=== PATIENT | female | born 1975 | race Caucasian/White ===

== ENCOUNTER 2021-04-29 09:52 | Emergency (ER) | payer MEDICAID ==
[~2021-04-29] VITALS: Ht 162.6 cm; Wt 72.7 kg
[~2021-04-29 09:52] MED LIST: OMEP40CA21 PO; ONDA4TAB9 PO; TRAM50TA2 PO; VENL-190 PO
[2021-04-29 10:07] VITALS: BP 139/88
[2021-04-30] MEDS ORDERED: IBUP-1984 PO (08:03)
== END 2021-04-29 18:08 | disposition left against medical advice (07) ==
LOC: ER 09:52
DX: M25.511 Pain in right shoulder (principal); Z53.21 Procedure and treatment not carried out due to patient leaving prior to being seen by health care provider
CPT/HCPCS: 73030

== ENCOUNTER 2021-04-30 06:40 | Emergency (ER) | payer MEDICAID ==
[~2021-04-30] VITALS: Ht 162.6 cm; Wt 68.2 kg
[2021-04-30 06:53] VITALS: BP 116/86
[2021-04-30] MEDS ORDERED: triamcinolone acetonide 40mg/ml inj IJ ONE (07:50)
[2021-04-30] MEDS ORDERED: LIDOcaine 1% (10mg/ml) 2ml vial SQ ONE (07:50)
[2021-04-30] MEDS ORDERED: IBUP-1984 PO (08:03)
== END 2021-04-30 08:18 | disposition home or self-care (01) ==
LOC: ER 06:42
DX: M25.511 Pain in right shoulder (principal); Z79.899 Other long term (current) drug therapy
CPT/HCPCS: 99282

== ENCOUNTER 2021-05-14 13:06 | Emergency (ER) | payer MEDICARE, MEDICAID ==
[~2021-05-14] VITALS: Ht 162.6 cm; Wt 68.2 kg
[2021-05-14 13:25] VITALS: BP 133/75
--- NOTE | 2021-05-14 16:04 | NUR ---
not in lobby.
== END 2021-05-14 16:23 | disposition left against medical advice (07) ==
LOC: ER 13:07
DX: M25.511 Pain in right shoulder (principal); F17.200 Nicotine dependence, unspecified, uncomplicated; Z98.890 Other specified postprocedural states; Z79.899 Other long term (current) drug therapy; Z53.21 Procedure and treatment not carried out due to patient leaving prior to being seen by health care provider

== ENCOUNTER 2021-05-16 06:34 | Emergency (ER) | payer MEDICARE, MEDICAID ==
[~2021-05-16] VITALS: Ht 162.6 cm; Wt 68.2 kg
[2021-05-16 06:49] VITALS: BP 130/85
[2021-05-16] MEDS ORDERED: TRAM50TA2 PO (08:00)
--- NOTE | 2021-05-16 13:52 | NUR ---
PT RETURNED AND RECEIVED HER DC INSTRUCTIONS AND RX FOR PAIN. DISCUSSED NEED FOR FOLLOW-UP WITH PMD FOR A REFERRAL FOR POSSIBLE MRI AND ORTHOPEDIST SHOULD SYPTOMS PERSIST OR WORSEN
== END 2021-05-16 09:02 | disposition home or self-care (01) ==
LOC: ER 06:35
DX: M77.8 Other enthesopathies, not elsewhere classified (principal); Z79.899 Other long term (current) drug therapy; Z98.891 History of uterine scar from previous surgery
CPT/HCPCS: 99283

== ENCOUNTER 2022-04-02 18:11 | Emergency (ER) | payer MEDICARE, MEDICAID ==
[~2022-04-02] VITALS: Ht 162.6 cm; Wt 79.5 kg
[2022-04-02 18:22] VITALS: BP 149/86
== END 2022-04-02 21:11 | disposition left against medical advice (07) ==
LOC: ER 18:12
DX: B88.9 Infestation, unspecified (principal); Z53.21 Procedure and treatment not carried out due to patient leaving prior to being seen by health care provider

== ENCOUNTER 2025-03-25 08:05 | Emergency (ER) | payer MEDICAID, MEDICARE ==
[~2025-03-25] VITALS: Ht 162.6 cm; Wt 94.7 kg
[2025-03-25 08:22] VITALS: BP 151/91; PULSE 96; RESP 18; TEMP 97.9; O2SAT 96
--- NOTE | 2025-03-25 08:39 | Physician Documentation ---
History of Present Illness ~ Chief Complaint: Rash Stated Complaint: RASH Time Seen by MD: 08:26 Primary Medical Doctor: NONE HPI 50 year old female reports months of itching rash over her wrists, face, shoulders, and trunk. She reports she has been seen by dermatologists and other physicians and been through several rounds of different therapies including steroid cream, permethrin. She does endorse some vague drug use history but refuses to elaborate. The rash is intensely itchy. She denies fevers, N/V/D. Medication Reconciliation Allergies: Coded Allergies: No Known Allergies (Unverified , 03/25/25) Scheduled Omeprazole (Prilosec), 1 CAP PO DAILY, (Reported) Venlafaxine HCl (Effexor Xr), 75 MG PO DAILY, (Reported) Scheduled PRN Ondansetron* (Zofran Odt*), 4 MG PO Q6H PRN for nausea/vomiting, (Reported) Tramadol HCl (Tramadol HCl), 1 TABLET PO PRN PRN for pain, (Reported) Past Medical History Past Medical History: No Pertinent History Past Surgical History: Alcohol Use: None Drug Use: none Lives with: Spouse Lives In: Home Occupation: employed Review of Systems All Other Systems at this time: Reviewed and Negative Physical Exam Vital Signs: RN Vital Signs have been reviewed: Yes, Temperature: 97.9, Source: Temporal, Heart Rate: 96, Respiratory Rate: 18, BP: 151/91, Pulse Oximetry: 96, Weight: 94.700 Physical Exam HEENT: PERRL, moist oral mucosa, EOMI Pulmonary: No respiratory distress MSK: no deformity Skin: w/d/i; excoriated lesions to wrists, upper lip, shoulders, trunk, arms, legs without purulence, induration. 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 Counseled, reassured. Patient eloped prior to completion of workup and discharge instructions. Differential Dx:Considerations: Include: Contact dermatitis, Psoriaisis, Scabies, Urticaria, Viral exanthema Additional Comment Ddx = drug induced formication Departure Disposition: HOME / SELF CARE / HOMELESS Impression: Primary Impression: Psychogenic formication Condition: Stable Discharge Instructions: Methamphetamines Use Disorder Referrals: NO PRIMARY CARE PROVIDER (PCP) Education Educated: Patient Educated regarding: diagnosis, treatment, prognosis, need for follow up Signature Scribe Signature: . Attestation: . ARVIN CM MD Mar 25, 2025 08:39
== END 2025-03-25 09:36 | disposition left against medical advice (07) ==
LOC: ER 08:06
DX: F45.8 Other somatoform disorders (principal); Z79.899 Other long term (current) drug therapy; Z98.890 Other specified postprocedural states
CPT/HCPCS: 99282